=== PATIENT | female | born 1950 | race Caucasian/White ===

== ENCOUNTER → 2022-07-15 | Outpatient (CLI) | payer OTHER | END | disposition home or self-care (01) | LOC: RAH 14:00 | PROVIDERS: ATTEND Family Medicine | DX: Z12.31 Encounter for screening mammogram for malignant neoplasm of breast (principal) | CPT/HCPCS: 77067 ==

== ENCOUNTER → 2023-07-27 | Outpatient (CLI) | payer OTHER | END | disposition home or self-care (01) | LOC: RAH 10:33 | PROVIDERS: ATTEND Family Medicine | DX: Z12.31 Encounter for screening mammogram for malignant neoplasm of breast (principal) | CPT/HCPCS: 77067 ==

== ENCOUNTER 2024-06-21 14:38 | Observation (INO) | payer OTHER ==
[~2024-06-21] VITALS: Ht 165.1 cm; Wt 62.1 kg
--- NOTE | 2024-06-21 15:00 | ERN ---
General Chief Complaint: Other Problems Stated Complaint: EVAL Time Seen by MD: 14:41 Source: patient History of Present Illness Initial Comments Patient is a 74-year-old female coming in to be evaluated for slurred speech and dysphagia. Per patient she was evaluated by PCP earlier today and was sent in for further evaluation. Patient has been having these symptoms for two months but has been getting worse. Allergies: Coded Allergies: Cephalosporins (Unverified Allergy, Unknown, 06/21/24) Penicillins (Unverified Allergy, Unknown, 06/21/24) codeine (Unverified Allergy, Unknown, 06/21/24) hydrocodone (Unverified Allergy, Unknown, 06/21/24) Past Medical History Past Medical History: Hypertension Past Surgical History: BTL Surgical History Other: BILATERAL ROTATOR CUFFS, BREAST REDUCTION, BACK SX ROS Dictation CONSTITUTIONAL: No chills, no fever, weakness, no diaphoresis, no malaise. HEAD/FACE: No signs of trauma. EENT: No eye pain, no blurred vision, no tearing, no double vision, no ear pain, no ear discharge, no nose pain, no nasal congestion, no throat pain, no throat swelling, no mouth pain. RESPIRATORY: No cough, no orthopnea, no SOB, no stridor, no wheezing. CARDIOVASCULAR: No chest pain, no edema, no palpitations, no syncope. GASTROINTESTINAL/ABDOMINAL: No abdominal pain, no constipation, no diarrhea, no nausea, no vomiting. GENITOURINARY: No abnormal discharge, no dysuria, no frequent urination, no hematuria. No complaints of pain in the genitals. MUSCULOSKELETAL: No back pain, no gout, no joint pain, no joint swelling, no muscle pain, no muscle stiffness, no neck pain. INTEGUMENTARY: No change in color, no change in hair/nails, no dryness, no lesion, no lumps, no rash. NEUROLOGICAL/PSYCH: No anxiety, not depressed, no emotional problem, no headache, no numbness, no pre-existing deficit, no history of seizures, no tremors, no weakness. HEMATOLOGIC/LYMPHATIC: Not anemic, no history of blood clots, no apparent bleeding, no bruising, glands not swollen. All Systems Negative, Except as Noted. Physical Exam Physical Exam Dictation VITAL SIGNS: Reviewed. GENERAL APPEARANCE: Alert, oriented x3, no acute distress, obese. HEAD AND FACE: Non-traumatic. EYES: PERRL, pink conjunctivas, eyelid no trauma, anterior chamber clear. EARS: Pinnas intact and no signs of trauma or erythema. Ear canals clear and no discharge. TMs no erythema. NOSE: No discharge, no bleeding. OROPHARYNX: Mouth normal, teeth no caries, tongue pink. Pharynx clear, no erythema. Tonsils no exudates, no abscesses noted. Mucous membrane moist. NECK: Supple, non-tender, no thyromegaly, no masses, no JVD, no bruits. BREAST: Deferred. CHEST: No tenderness, no crepitus, no paradoxical movement, no retractions. LUNGS: Clear, well-ventilated, symmetric, no rales, no wheezing, no rhonchi, no stridor, good breath sounds bilaterally. HEART: Regular rate, regular rhythm, no murmur, no gallops. VASCULAR: No peripheral edema. ABDOMEN: Soft, positive bowel sounds, nondistended, no guarding, nontender, no rebound, no masses no hepatomegaly, no splenomegaly, no Strange's sign, no hernias. RECTAL: Deferred. GENITAL: Deferred. NEUROLOGICAL: Normal speech, gross motor function intact, gross sensory function intact. MUSCULOSKELETAL: Neck nontender, full range of motion, back nontender, full range of motion. EXTREMITIES: Nontender, full range of motion. SKIN: Color pink, dry, no turgor, no rash, no lacerations, no abrasions, no contusions. LYMPHATICS: Deferred. Results Laboratory and Microbiology Lab and Micro Result Laboratory Tests Test 06/21/24 15:10 06/21/24 16:17 White Blood Count 6.0 K/uL (4.8-10.8) Red Blood Count 4.18 MIL/uL (4.00-5.50) Hemoglobin 12.9 g/dL (12.0-16.0) Hematocrit 39.2 % (36-48) Mean Corpuscular Volume 93.8 fL (79-99) Mean Corpuscular Hemoglobin 30.9 pg (27.0-33.0) Mean Corpuscular Hemoglobin Concent 32.9 g/dL (32.0-36.0) Red Cell Distribution Width 11.9 % (11.0-15.5) Platelet Count 199 K/uL (130-400) Mean Platelet Volume 10.5 fL (7.5-10.5) Immature Granulocyte % (Auto) 0.2 % (0-1) Neutrophils (%) (Auto) 58.8 % (40.0-77.0) Lymphocytes (%) (Auto) 33.3 % (21.0-51.0) Monocytes (%) (Auto) 6.0 % (3.0-13.0) Eosinophils (%) (Auto) 1.2 % (0.0-8.0) Basophils (%) (Auto) 0.5 % (0.0-5.0) Neutrophils # (Auto) 3.5 K/uL (1.8-7.7) Lymphocytes # (Auto) 2.0 K/uL (1.0-4.8) Monocytes # (Auto) 0.4 K/uL (0.1-1.0) Eosinophils # (Auto) 0.07 K/uL (0.00-0.70) Basophils # (Auto) 0.03 K/uL (0.00-0.20) Absolute Immature Granulocyte (auto 0.01 K/uL (0-1) Nucleated Red Blood Cells 0.0 % (0.0-0.19) Prothrombin Time 10.8 SEC (9.6-11.6) Prothromb Time International Ratio 1.02 (0.85-1.15) Activated Partial Thromboplast Time 29.6 SEC (26.3-35.5) Sodium Level 143 mmol/L (136-145) Potassium Level 4.0 mmol/L (3.5-5.1) Chloride Level 103 mmol/L (101-111) Carbon Dioxide Level 34 mmol/L (21-32) H Blood Urea Nitrogen 23 mg/dL (7-18) H Creatinine 0.8 mg/dL (0.5-1.0) Glomerular Filtration Rate Calc 78 mL/min (>90) Random Glucose 100 mg/dL (70-105) Total Calcium 9.4 mg/dL (8.5-10.1) Total Creatine Kinase 99 U/L (21-232) Troponin I High Sensitivity 6.3 ng/L (4-50) B-Type Natriuretic Peptide 70 pg/mL (0-100) LDL Cholesterol 45 mg/dL (0-99) Urine Color YELLOW (YELLOW) Urine Appearance CLEAR (CLEAR) Urine pH 5.5 (5.0-8.0) Urine Specific [place] 1.025 (1.001-1.031) Urine Protein NEGATIVE mg/dL (NEGATIVE) Urine Glucose (UA) NEGATIVE mg/dL (NEGATIVE) Urine Ketones NEGATIVE mg/dL (NEGATIVE) Urine Occult Blood NEGATIVE (NEGATIVE) Urine Nitrate NEGATIVE (NEGATIVE) Urine Bilirubin NEGATIVE mg/dL (NEGATIVE) Urine Urobilinogen 0.2 mg/dL (0.2-1.0) Urine Leukocyte Esterase 500 Corey/uL (NEGATIVE) H Urine RBC 2-5 /HPF (0-1) H Urine WBC 26-50 /HPF (0-1) H Urine Squamous Epithelial Cells RARE /HPF (0-2) Urine Bacteria RARE /HPF (None Seen) EKG/XRAY/US/CT/MRI EKG Comment 06/21/2024 time 3:04 p.m. Ventricular rate 69 Sinus rhythm [place] [address] wave elevation or depression X-RAY Comment [address] [place] [id number] IMAGING REPORT Signed PATIENT: AMBERLY AYALA MR#: [id number] : 1950 SEX: F AGE: 74 LOCATION: [facility] ORDER 1450 STATUS: [facility] REPORT#: [id number] SERVICE 1448 REASON: stroke ORDERING PHYSICIAN: ELVIN ALEJANDRE MD PROCEDURE: CXR1VW - CHEST 1VW PORTABLE CHEST RADIOGRAPH INDICATION: stroke COMPARISON: None FINDINGS: Heart size is normal. The pulmonary vascularity and renaldo appear normal. No abnormal pulmonary parenchymal opacity or consolidation identified. No significant pleural effusion noted. No pneumothorax detected. IMPRESSION: No radiographic evidence for any acute cardiopulmonary process. DICTATED BY: RONNY ANN MD DATE: 06/21/24 1524 ELECTRONICALLY SIGNED BY: RONNY ANN MD DATE: 06/21/[address] Scan Comment [facility] [address] [place] [address] IMAGING REPORT Signed PATIENT: AMBERLY AYALA MR#: [id number] : 1950 SEX: F AGE: 74 LOCATION: [facility] ORDER 1624 STATUS: REG ER REPORT#: [id number] SERVICE 162 REASON: dysphagia ORDERING PHYSICIAN: ELVIN ALEJANDRE MD PROCEDURE: NKSOFTI W - CT NECK SOFT TISS W/CONTRAST CT NECK WITH CONTRAST INDICATION: Dysphagia TECHNIQUE: 3D helical CT acquisition images were obtained from the level of the skull base to the thoracic inlet with 75 mL of Omnipaque 350 IV contrast and coronal and sagittal reformats. CT was performed with one or more of the following dose reduction techniques: Automated exposure control, adjustment of the mA and/or kV according to patient size, or use of iterative reconstruction technique. COMPARISON: None FINDINGS: The visualized portions of the brain, skull base, orbits, and paranasal sinuses appear normal. The visualized nasopharynx and nasal cavity appear normal. The oral cavity, oropharynx, and hypopharynx appear normal. The cervical esophagus and visualized portion of the thoracic esophagus appear normal. The larynx and visualized trachea appear normal. The extramucosal spaces of the neck appear normal. The parotid and submandibular glands appear normal. The thyroid gland appears normal. No cervical lymphadenopathy noted. The visualized osseous structures, vasculature, and soft tissues appear normal. The upper mediastinum and lung apices appear normal. IMPRESSION: Normal CT imaging of the neck. DICTATED BY: RONNY ANN MD DATE: 06/21/24 1753 ELECTRONICALLY SIGNED BY: RONNY ANN MD DATE: 06/21/24 [address] [place] [id number] IMAGING REPORT Signed PATIENT: AMBERLY AYALA MR#: [id number] : 1950 SEX: F AGE: 74 LOCATION: ED ORDER 1450 STATUS: REG ER REPORT#: [id number] SERVICE 1448 REASON: slurred speech ORDERING PHYSICIAN: ELVIN ALEJANDRE MD PROCEDURE: HEAD WO - CT HEAD/BRAIN W/O CONTRAST CT HEAD WITHOUT CONTRAST INDICATION: Slurred speech TECHNIQUE: Noncontrast axial helical CT images from the vertex through the skull base using 5 mm slice thickness without contrast material. Coronal and sagittal reconstructions were also included. Dose reduction techniques was used using integrated, automated and adaptive dose reduction exposure control. CT was performed with one or more of the following dose reduction techniques: Automated exposure control, adjustment of the mA and/or kV according to patient size, or use of iterative reconstruction technique. COMPARISON: None FINDINGS: Scattered and coalescent subcortical and periventricular white matter low attenuating areas likely represent residual of chronic small vessel arteriopathy and/or remote vascular insult. Generalized mild cerebral cortical atrophy is present.. No evidence for abnormal extra-axial fluid collections or masses. The ventricles and sulci are normal in size and configuration. No evidence for intracranial parenchymal, epidural, or subdural hemorrhage, mass effect or midline shift. The real-white matter differentiation is well preserved. No secondary evidence to suggest acute ischemia. Mild calcific plaque is present along the downs of the cavernous segments of both internal carotid arteries. The brainstem and cerebellum appear normal. The visualized orbits appear unremarkable. The visible paranasal sinuses and mastoid air cells are clear. The calvarium appears normal. IMPRESSION: Chronic white matter ischemic changes, mild brain atrophy, and arteriosclerotic disease as described, without acute component. DICTATED BY: RONNY ANN MD DATE: 06/21/24 153 ELECTRONICALLY SIGNED BY: RONNY ANN MD DATE: 06/21/24 153 [facility] MDM: Differential diagnosis: CVA, TIA, dysphagia, Rationale: Tests considered and ordered secondary to shared decision making include: labs, ECG and radiology Previous outside records reviewed: Old ER visits. Risk of complication and/or morbidity or mortality of patient management: None Medications-Per medication reconciliation Need for hospitalization: Patient does meet criteria for hospitalization. Need for emergency major/minor surgery: No There are no social concerns with this patient. Prescription drug management Prescriptions will include symptomatic care Patient's prior external medical records from other ER visits were reviewed by me as indicated. Prior testing and results from previous visits were reviewed. Prior tests were taken into account with medical decision making and resource utilization, independent historian/historians were used to obtain complete medical history. I independently interpreted the test that were performed, results were reviewed by me and considered findings on radiology if ordered. Medical management and examination interpretation discussions were had by me with other qualified healthcare professionals as indicated for the patient's care. Patient is a 74-year-old female coming in to be evaluated for dysarthria and dysphagia. Per patient's symptoms has been ongoing for two months. Spoke to neurologist Dr.Cerdan villafuerte to admit. And workup for stroke. Hospitalist we will be admitting. ED Course Orders Procedure Category Date Status Time Cbc With Differential LAB 06/21/24 Complete 14:48 Prothrombin Time With LAB 06/21/24 Complete INR 14:48 Partial LAB 06/21/24 Complete Thromboplastin Time 14:48 Ct Head/Brain W/O CT 06/21/24 Resulted Contrast 14:48 Chest 1vw RAD 06/21/24 Resulted 14:48 12 Lead Ekg Tracing- EKG 06/21/24 Logged Technical 14:48 Ldl Direct LAB 06/21/24 Complete 14:48 Urinalysis Profile LAB 06/21/24 Complete 14:48 B-Type Natriuretic LAB 06/21/24 Complete Peptide 14:48 Bedside Glucose CPOE 06/21/24 Transmitted Fingerstick 14:48 Basic Metabolic Panel LAB 06/21/24 Complete 14:48 Cardiac Panel LAB 06/21/24 Complete 14:[address] Neck Soft Tiss CT 06/21/24 Resulted W/Contrast 16:24 Culture Urine SATYA 06/21/24 In Process 16:31 Iohexol (Omnipaque) PHA 06/21/24 Complete 16:52 Current Medications Medications (Trade) Dose Ordered Sig/Joseph Route PRN Reason Start Time Stop Time Status Last Admin Dose Admin Iohexol (Omnipaque) 75 ml STK-MED ONCE IV 06/21/24 16:52 06/21/24 16:52 DC Vital Signs Date Time Temp Pulse Resp B/P (MAP) Pulse Ox O2 Delivery O2 Flow Rate FiO2 06/21/24 15:33 98.2 62 18 112/66 97 Room Air* 0 21 06/21/24 14:39 98.4 81 18 121/83 98 Room Air DX & DISP Disposition: Inpatient Decision to Admit Time: 18:11 Departure Impression: Primary Impression: CVA (cerebral vascular accident) Additional Impressions: TIA (transient ischemic attack), Dysphagia Condition: Stable Referrals: DEDRA RIVAS (PCP) ELVIN ALEJANDRE MD Jun 21, 2024 15:00
[2024-06-21 15:24] LABS: BASOPHILS # (AUTO) 0.03 K/uL (0.00-0.20); BASOPHILS % (AUTO) 0.5 % (0.0-5.0); EOSINOPHILS # (AUTO) 0.07 K/uL (0.00-0.70); EOSINOPHILS % (AUTO) 1.2 % (0.0-8.0); HEMATOCRIT 39.2 % (36-48); IMMATURE GRANULOCYTE ABSOLUTE 0.01 K/uL (0-1); LYMPHOCYTES % (AUTO) 33.3 % (21.0-51.0); MEAN CORPUSCULAR HEMOGLOBIN 30.9 pg (27.0-33.0); MEAN CORPUSCULAR HGB CONC 32.9 g/dL (32.0-36.0); MEAN CORPUSCULAR VOLUME 93.8 fL (79-99); MONOCYTES # (AUTO) 0.4 K/uL (0.1-1.0); NEUTROPHILS # (AUTO) 3.5 K/uL (1.8-7.7); NEUTROPHILS % (AUTO) 58.8 % (40.0-77.0); PLATELET COUNT (AUTO) 199 K/uL (130-400); RED BLOOD CELL COUNT(AUTO) 4.18 MIL/uL (4.00-5.50); RED CELL DISTRIBUTION WIDTH 11.9 % (11.0-15.5)
--- NOTE | 2024-06-21 15:27 | HMCIMG ---
PORTABLE CHEST RADIOGRAPH INDICATION: stroke COMPARISON: None FINDINGS: Heart size is normal. The pulmonary vascularity and renaldo appear normal. No abnormal pulmonary parenchymal opacity or consolidation identified. No significant pleural effusion noted. No pneumothorax detected. IMPRESSION: No radiographic evidence for any acute cardiopulmonary process.
--- NOTE | 2024-06-21 15:38 | HMCIMG ---
CT HEAD WITHOUT CONTRAST INDICATION: Slurred speech TECHNIQUE: Noncontrast axial helical CT images from the vertex through the skull base using 5 mm slice thickness without contrast material. Coronal and sagittal reconstructions were also included. Dose reduction techniques was used using integrated, automated and adaptive dose reduction exposure control. CT was performed with one or more of the following dose reduction techniques: Automated exposure control, adjustment of the mA and/or kV according to patient size, or use of iterative reconstruction technique. COMPARISON: None FINDINGS: Scattered and coalescent subcortical and periventricular white matter low attenuating areas likely represent residual of chronic small vessel arteriopathy and/or remote vascular insult. Generalized mild cerebral cortical atrophy is present.. No evidence for abnormal extra-axial fluid collections or masses. The ventricles and sulci are normal in size and configuration. No evidence for intracranial parenchymal, epidural, or subdural hemorrhage, mass effect or midline shift. The real-white matter differentiation is well preserved. No secondary evidence to suggest acute ischemia. Mild calcific plaque is present along the downs of the cavernous segments of both internal carotid arteries. The brainstem and cerebellum appear normal. The visualized orbits appear unremarkable. The visible paranasal sinuses and mastoid air cells are clear. The calvarium appears normal. IMPRESSION: Chronic white matter ischemic changes, mild brain atrophy, and arteriosclerotic disease as described, without acute component.
[2024-06-21 15:52] LABS: CREATININE 0.8 mg/dL (0.5-1.0)
[2024-06-21 15:55] LABS: B-TYPE NATRIURETIC PEPTIDE 70 pg/mL (0-100)
[2024-06-21 16:00] LABS: INR 1.02 (0.85-1.15); PROTHROMBIN TIME 10.8 SEC (9.6-11.6)
[2024-06-21 16:02] LABS: PARTIAL THROMBOPLASTIN TIME 29.6 SEC (26.3-35.5)
[2024-06-21 16:29] LABS: APPEARANCE,URINE CLEAR (CLEAR); BILIRUBIN,URINE NEGATIVE (NEGATIVE); COLOR,URINE YELLOW (YELLOW); GLUCOSE, URINE (UA) NEGATIVE (NEGATIVE); KETONES,URINE NEGATIVE (NEGATIVE); LEUKOCYTE ESTERASE ,URINE 500 Leu/uL (NEGATIVE); NITRATE,URINE NEGATIVE (NEGATIVE); OCCULT BLOOD,URINE NEGATIVE (NEGATIVE); PH,URINE 5.5 (5.0-8.0); PROTEIN,URINE NEGATIVE (NEGATIVE); UROBILINOGEN,URINE 0.2 mg/dL (0.2-1.0)
[2024-06-21 16:30] LABS: ADD UA MICROSCOPIC YES
[2024-06-21 16:32] LABS: BACTERIA,URINE RARE /HPF (None Seen); MUCUS,URINE RARE LPF (None Seen); SQUAMOUS EPITHELIAL CELL,UR RARE /HPF (0-2); WBC,URINE 26-50 /HPF (0-1)
[2024-06-21] MEDS ORDERED: IOHEXOL-350 75 ML VIAL IV ONE (16:52)
--- NOTE | 2024-06-21 18:00 | HMCIMG ---
CT NECK WITH CONTRAST INDICATION: Dysphagia TECHNIQUE: 3D helical CT acquisition images were obtained from the level of the skull base to the thoracic inlet with 75 mL of Omnipaque 350 IV contrast and coronal and sagittal reformats. CT was performed with one or more of the following dose reduction techniques: Automated exposure control, adjustment of the mA and/or kV according to patient size, or use of iterative reconstruction technique. COMPARISON: None FINDINGS: The visualized portions of the brain, skull base, orbits, and paranasal sinuses appear normal. The visualized nasopharynx and nasal cavity appear normal. The oral cavity, oropharynx, and hypopharynx appear normal. The cervical esophagus and visualized portion of the thoracic esophagus appear normal. The larynx and visualized trachea appear normal. The extramucosal spaces of the neck appear normal. The parotid and submandibular glands appear normal. The thyroid gland appears normal. No cervical lymphadenopathy noted. The visualized osseous structures, vasculature, and soft tissues appear normal. The upper mediastinum and lung apices appear normal. IMPRESSION: Normal CT imaging of the neck.
--- NOTE | 2024-06-21 19:31 | NUR ---
PT CARE ASSUMED AT THIS TIME
--- NOTE | 2024-06-21 20:29 | HP ---
[facility] HISTORY AND PHYSICAL Date of Service: Jun 21, 2024 Time of Service: 20:11 PCP: Amos Pitt HISTORY OF PRESENT ILLNESS: This is a 74-year-old male past medical history of hypertension and hyperlipidemia who presents to the ED for complaints of slurred speech,dysphagia and voice hoarseness which started 2 months ago. Patient states she went to her PCP today for a scheduled labs and imaging studies since she has 2 cysts on her thyroid which has been on going for years now and she told her PCP about her complaints that she has been having difficulty swallowing ,voice hoarseness and feels like her tongue is thick and has also problem talking and all this happened since 2 months ago and it seems like it is becoming more worse so she was instructed to come to the ED for a further evaluation. Seen and examined patient in the Er,awake,alert and coherent .Patient moving all her extremities equally.Patient denies headache,dizziness,numbness or tingling sensation on her extremities.Patient denies abdominal pain, chest pain,palpitation and shortness of breath. Recent vital signs temperature 98.1, heart rate 90, blood pressure 118/78 saturation 97% on room air. Labs: CBC is normal. CO2 34 BUN 23 BNP 70 troponin six the rest of the chemistry is normal. Urinalysis positive with esterase. CT neck soft tissue result revealed normal. CT head without contrast result revealed chronic white matter ischemic changes mild brain atrophy and arteriosclerotic disease as described without acute component. ECG result revealed sinus rhythm heart rate 69. Chest x-ray is normal. Reportedly as per ER, neurologist was consulted. We will ad fallon patient for further medical management. REVIEW OF SYSTEMS CONSTITUTIONAL: Denies fevers, chills, or night sweats. No unintentional weight loss reported. NEUROLOGICAL: Denies headache, amaurosis fugax, motor weakness, sensory deficit, vertigo/spinning sensation, gait abnormalities, or tremors. ENT: No hearing loss, otalgia, otorrhea, rhinitis, rhinorrhea, hoarseness, or sore throat. CARDIOVASCULAR: Denies any exertional angina, dyspnea on exertion, orthopnea, paroxysmal nocturnal dyspnea, palpitations, life-threatening arrhythmias, claudication. PULMONARY: Denies any shortness of breath, cough, phlegm/sputum, hemoptysis, pleuritic chest pain. SLEEP: Denies morning headaches, daytime somnolence or napping. Denies difficulty falling asleep, staying asleep, waking from sleep. Denies knowledge of snoring. GASTROINTESTINAL: Denies any type of dysphagia to either liquids or solids. Denies nausea, vomiting, pyrosis, early satiety, abdominal pain, diarrhea, constipation, or changes in stool consistency or caliber. Denies coffee-ground emesis, hematemesis, hematochezia, or melanotic stools. GENITOURINARY: Denies frequency, urgency, nocturia, hematuria or incontinence (Storage/Irritative symptoms.) Low urinary stream, straining to void, urinary intermittency or hesitancy, splitting of the voiding stream, terminal dribbling. ENDOCRINOLOGIC: Denies polyuria, polydipsia, polyphagia or heat/cold intolerances. HEMATOLOGIC: Denies thrombophilia/previous clots, or coagulopathy/bleeding disorders. ONCOLOGIC: Denies personal history of malignancy. DERMATOLOGIC: Denies rashes or pruritus. PSYCHIATRIC: Denies any suicidal or homicidal ideation. Denies hallucinations. PAST MEDICAL HISTORY: [ Hypertension and hyperlipidemia ] PAST SURGICAL HISTORY: [Bilateral Cataract surgery , bilateral shoulder surgery, lower back surgery and tubal ligation ] PAST SOCIAL HISTORY: [ Patient lives with . Patient denies alcohol tobacco and recreational drug use ] FAMILY HISTORY: [Stroke ] Coded Allergies: Cephalosporins (Unverified Allergy, Unknown, 06/21/24) Penicillins (Unverified Allergy, Unknown, 06/21/24) codeine (Unverified Allergy, Unknown, 06/21/24) hydrocodone (Unverified Allergy, Unknown, 06/21/24) PHYSICAL EXAM GENERAL APPEARANCE: The patient is awake, alert, and oriented, in no acute cardiopulmonary distress. NEUROLOGICAL: Motor is 5/5 in bilateral upper and lower extremities proximal to distal. HEENT: Face is symmetric. Pupils are equal and reactive. Extraocular movements are intact. NECK: Supple. No JVD. No thyromegaly. No submental, submandibular, pre- /postauricular, occipital or supraclavicular lymphadenopathy. CHEST: Normal chest expansion. No Telemetry. LUNGS: Absence of any rales, rhonchi or any wheezing. CARDIOVASCULAR: Regular. S1 and S2 normal. No appreciable rubs, murmurs or gallops. ABDOMEN: Soft, nontender, and nondistended. There is no rebound, voluntary guarding, or rigidity. : Deferred. No Arias. EXTREMITIES: Non-edematous and not cyanotic. No clubbing. Good capillary refill. SKIN: No skin breakdown. Vital Sign (Last 24 Hours) 06/21/24 19:43 Temp 98.1 Pulse 90 Resp 17 B/P (MAP) 118/78 Pulse Ox 97 O2 Delivery Room Air* O2 Flow Rate 0 FiO2 21 LABS: Laboratory: Test 06/21/24 16:17 06/21/24 15:10 Range/Units Urine Color YELLOW YELLOW Urine Appearance CLEAR CLEAR Urine pH 5.5 5.0-8.0 Urine Specific [place] 1.025 1.001-1.031 Urine Protein NEGATIVE NEGATIVE mg/dL Urine Glucose (UA) NEGATIVE NEGATIVE mg/dL Urine Ketones NEGATIVE NEGATIVE mg/dL Urine Occult Blood NEGATIVE NEGATIVE Urine Nitrate NEGATIVE NEGATIVE Urine Bilirubin NEGATIVE NEGATIVE mg/dL Urine Urobilinogen 0.2 0.2-1.0 mg/dL Urine Leukocyte Esterase 500 H NEGATIVE Corey/uL Urine RBC 2-5 H 0-1 /HPF Urine WBC 26-50 H 0-1 /HPF Urine Squamous Epithelial Cells RARE 0-2 /HPF Urine Bacteria RARE None Seen /HPF White Blood Count 6.0 4.8-10.8 K/uL Red Blood Count 4.18 4.00-5.50 MIL/uL Hemoglobin 12.9 12.0-16.0 g/dL Hematocrit 39.2 36-48 % Mean Corpuscular Volume 93.8 79-99 fL Mean Corpuscular Hemoglobin 30.9 27.0-33.0 pg Mean Corpuscular Hemoglobin Concent 32.9 32.0-36.0 g/dL Red Cell Distribution Width 11.9 11.0-15.5 % Platelet Count 199 130-400 K/uL Mean Platelet Volume 10.5 7.5-10.5 fL Immature Granulocyte % (Auto) 0.2 0-1 % Neutrophils (%) (Auto) 58.8 40.0-77.0 % Lymphocytes (%) (Auto) 33.3 21.0-51.0 % Monocytes (%) (Auto) 6.0 3.0-13.0 % Eosinophils (%) (Auto) 1.2 0.0-8.0 % Basophils (%) (Auto) 0.5 0.0-5.0 % Neutrophils # (Auto) 3.5 1.8-7.7 K/uL Lymphocytes # (Auto) 2.0 1.0-4.8 K/uL Monocytes # (Auto) 0.4 0.1-1.0 K/uL Eosinophils # (Auto) 0.07 0.00-0.70 K/uL Basophils # (Auto) 0.03 0.00-0.20 K/uL Absolute Immature Granulocyte (auto 0.01 0-1 K/uL Nucleated Red Blood Cells 0.0 0.0-0.19 % Prothrombin Time 10.8 9.6-11.6 SEC Prothromb Time International Ratio 1.02 0.85-1.15 Activated Partial Thromboplast Time 29.6 26.3-35.5 SEC Sodium Level 143 136-145 mmol/L Potassium Level 4.0 3.5-5.1 mmol/L Chloride Level 103 101-111 mmol/L Carbon Dioxide Level 34 H 21-32 mmol/L Blood Urea Nitrogen 23 H 7-18 mg/dL Creatinine 0.8 0.5-1.0 mg/dL Glomerular Filtration Rate Calc 78 >90 mL/min Random Glucose 100 70-105 mg/dL Total Calcium 9.4 8.5-10.1 mg/dL Total Creatine Kinase 99 21-232 U/L Troponin I High Sensitivity 6.3 4-50 ng/L B-Type Natriuretic Peptide 70 0-100 pg/mL LDL Cholesterol 45 0-99 mg/dL DIAGNOSTICS / RADIOLOGY: [ ] ASSESSMENT: Dysphagia and dysarthria r/o CVA POA Hyperlipidemia POA Hypertension POA Acute urinary tract infection POA PLAN: We will admit patient in medical telemetry We will start on full liquid diet We will start NS @ 75 ml / hr x1 bag and re evaluate We will start patient on Rocephin 1 g IV daily We will start on Famotidine 20 mg IV bid for GI prophylaxis We will replace electrolytes as needed per protocol We will add prn medication for fever,pain,cough and nausea We will reconcile home meds once medlist available We will seek neurology consultation We will check nuero status q.4 NIHSS qhift and as needed We will request Case management service We will request bedside swallow eval We will request labs in am Further orders to follow depending on above results Case discussed with attending physician and came up with above treatment and plan of care. ADVANCED CARE PLANNING 1. Which of the following were discussed? Hospice Care - No Therapeutic options - Yes Advance Directives - No Other discussions - 2. Discussed with who? Patient 3. Voluntary nature of this service was explained to the patient? Yes 4. Amount of time spent - _22 5. Reviewed by Physician? (if this service was performed by NPP) Yes Patient seen and examined by me. Agree with note by BRUSH SANDER SEE ADDITIONAL ORDERS PER CHART DISCUSSED WITH NURSING STAFF HEATHER RAHMAN MAILING MACHINE ASSISTANT Jun 21, 2024 20:29
[2024-06-21] MEDS ORDERED: PoTASSium chloRIDE 20MEQ/100ML 100 ML IV PRN (20:30)
[2024-06-21] MEDS ORDERED: cefTRIAXone 1G VIAL 1 GM in 0.9%NACL 50ML 50 ML IV SCH (20:30)
[2024-06-21] MEDS ORDERED: PoTASSium chloRIDE 20MEQ ER 20 MEQ ERTAB PO PRN (20:30)
[2024-06-21] MEDS ORDERED: PoTASSium chl 10% ELIXIR 20MEQ 20 MEQ/15 ML UDCUP PO PRN (20:30)
[2024-06-21] MEDS ORDERED: ondanSETRON 4MG INJ IV PRN (20:30)
[2024-06-21] MEDS ORDERED: MAGNESIUM 2GM PREMIX 50ML 50 ML IV PRN (20:30)
[2024-06-21] MEDS: 0.9%NACL 1000ML 1,000 ML IV SCH (21:20)
[2024-06-21] MEDS: FAMOTIDINE 20MG VIAL IV SCH (21:20)
--- NOTE | 2024-06-21 21:27 | NUR ---
REPOR GIVEN TO PHYLLIS SCHULZ AT THIS TIME.
[2024-06-21] MEDS: levoFLOXacin 500 MG/D5W 100 ML 100 ML IV SCH (23:23)
[2024-06-22] MEDS ORDERED: CALC-322 PO (00:43)
[2024-06-22] MEDS ORDERED: MELA10CA2 PO (00:43)
[2024-06-22] MEDS ORDERED: GABA300C PO (00:43)
[2024-06-22] MEDS ORDERED: CYCL2DRO OP (00:43)
[2024-06-22] MEDS ORDERED: CETI10TA87 PO (00:43)
[2024-06-22] MEDS ORDERED: CRAN450T10 PO (00:43)
[2024-06-22] MEDS ORDERED: PRED5DRO17 OU (00:43)
[2024-06-22] MEDS ORDERED: UBID300C3 PO (00:43)
[2024-06-22] MEDS ORDERED: ROSU20TA98 PO (00:43)
[2024-06-22] MEDS ORDERED: MAGN400C PO (00:43)
[2024-06-22] MEDS ORDERED: FENO160T16 PO (00:43)
[2024-06-22] MEDS ORDERED: LOSA100T59 PO (00:43)
--- NOTE | 2024-06-22 07:05 | NUR ---
ASSUMED CARE AT THIS TIME
[2024-06-22 07:30] LABS: BASOPHILS # (AUTO) 0.02 K/uL (0.00-0.20); BASOPHILS % (AUTO) 0.4 % (0.0-5.0); EOSINOPHILS # (AUTO) 0.08 K/uL (0.00-0.70); EOSINOPHILS % (AUTO) 1.4 % (0.0-8.0); IMMATURE GRANULOCYTE ABSOLUTE 0.02 K/uL (0-1); LYMPHOCYTES # (AUTO) 1.4 K/uL (1.0-4.8); LYMPHOCYTES % (AUTO) 25.3 % (21.0-51.0); MEAN CORPUSCULAR HEMOGLOBIN 30.5 pg (27.0-33.0); MEAN CORPUSCULAR HGB CONC 32.4 g/dL (32.0-36.0); MEAN CORPUSCULAR VOLUME 93.9 fL (79-99); MONOCYTES # (AUTO) 0.3 K/uL (0.1-1.0); MONOCYTES % (AUTO) 5.7 % (3.0-13.0); NEUTROPHILS # (AUTO) 3.7 K/uL (1.8-7.7); NEUTROPHILS % (AUTO) 66.8 % (40.0-77.0); PLATELET COUNT (AUTO) 179 K/uL (130-400); RED BLOOD CELL COUNT(AUTO) 3.94 MIL/uL (4.00-5.50); RED CELL DISTRIBUTION WIDTH 11.9 % (11.0-15.5); WHITE BLOOD COUNT (AUTO) 5.6 K/uL (4.8-10.8)
--- NOTE | 2024-06-22 07:37 | EKG ---
[facility] Test Date: 2024-06-21 Test Time: 15:04:18 Pat Name: AMBERLY AYALA Department: [facility]HIP Room: 328 Gender: F Records Supervisor: [id number] : 1950 Requested By: ELVIN ALEJANDRE Order Number: [id number] Reading MD: Ra Mabry Measurements Intervals Bowers Rate: 69 P: 34 IN: 194 QRS: -20 QRSD: 94 T: 17 QT: 406 QTc: 435 Interpretive Statements Sinus rhythm No previous ECG available for comparison Electronically Signed On 06-23-2024 14:48:14 CDT by Ra Mabry Please click the below link to view image of tracing.
[2024-06-22 07:57] LABS: ALBUMIN 3.3 g/dL (3.5-5.0); BILIRUBIN,TOTAL 0.8 mg/dL (0.2-1.0); CREATININE 0.8 mg/dL (0.5-1.0); MAGNESIUM 1.6 mg/dL (1.80-2.40); POTASSIUM 3.8 mmol/L (3.5-5.1); THYROID STIMULATING HORMONE 2.27 uIU/mL (0.36-3.74); TOTAL PROTEIN, SERUM 6.7 g/dL (6.0-8.3)
[2024-06-22 08:30] LABS: HEMOGLOBIN A1C 5.9 % (4.0-6.0)
[2024-06-22] MEDS: Fenofibrate 1 TAB PO SCH (09:00)
[2024-06-22] MEDS ORDERED: MAGNESIUM 2GM PREMIX 50ML 50 ML IV PRN (09:30)
[2024-06-22] MEDS: LoSARTan 100 MG TABLET PO SCH (09:57)
[2024-06-22] MEDS: MAGNESIUM OXIDE 400 MG TABLET PO SCH (09:57)
[2024-06-22] MEDS: PREDNISOLONE 1% OU SCH (10:09)
--- NOTE | 2024-06-22 10:48 | NUR ---
DCP: HOME Pt and her Cosmo Jain [phone] live at [facility]. Mobile home has ramp. 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 Pt states she and have great support [place] [facility] [place] Pt uses no DME or in home care services, she reports she remains active and independent. Pt's PCP is Dr Trinidad and she buys her meds at [facility] [address] Pt denies need for SNF, states she needs to get home at ok
--- NOTE | 2024-06-22 11:27 | PN ---
[facility] PROGRESS NOTE Date of Service: Jun 22, 2024 Time of Service: 11:19 SUBJECTIVE: This is a 74-year-old male past medical history of hypertension and hyperlipidemia who presents to the ED for complaints of slurred speech,dysphagia and voice hoarseness which started 2 months ago. Patient states she went to her PCP today for a scheduled labs and imaging studies since she has 2 cysts on her thyroid which has been on going for years now and she told her PCP about her complaints that she has been having difficulty swallowing ,voice hoarseness and feels like her tongue is thick and has also problem talking and all this happened since 2 months ago and it seems like it is becoming more worse so she was instructed to come to the ED for a further evaluation. Seen and examined patient in the Er,awake,alert and coherent .Patient moving all her extremities equally.Patient denies headache,dizziness,numbness or tingling sensation on her extremities.Patient denies abdominal pain, chest pain,palpitation and shortness of breath. Recent vital signs temperature 98.1, heart rate 90, blood pressure 118/78 saturation 97% on room air. Labs: CBC is normal. CO2 34 BUN 23 BNP 70 troponin six the rest of the chemistry is normal. Urinalysis positive with esterase. CT neck soft tissue result revealed normal. CT head without contrast result revealed chronic white matter ischemic changes mild brain atrophy and arteriosclerotic disease as described without acute component. ECG result revealed sinus rhythm heart rate 69. Chest x-ray is normal. Reportedly as per ER, neurologist was consulted. We will admit patient for further medical management. 06/22/2024 - patient is seen at bedside, pending bedside swallow and modified barium swallow study. Patient is currently has mild dysphagia and informed about choking on water, asymptomatic otherwise. Labs were unremarkable . We will follow up with the patient. REVIEW OF SYSTEMS CONSTITUTIONAL: Denies fevers, chills, or night sweats. No unintentional weight loss reported. NEUROLOGICAL: Denies headache, amaurosis fugax, motor weakness, sensory deficit, vertigo/spinning sensation, gait abnormalities, or tremors. ENT: No hearing loss, otalgia, otorrhea, rhinitis, rhinorrhea, hoarseness, or sore throat. CARDIOVASCULAR: Denies any exertional angina, dyspnea on exertion, orthopnea, paroxysmal nocturnal dyspnea, palpitations, life-threatening arrhythmias, claudication. PULMONARY: Denies any shortness of breath, cough, phlegm/sputum, hemoptysis, pleuritic chest pain. SLEEP: Denies morning headaches, daytime somnolence or napping. Denies difficulty falling asleep, staying asleep, waking from sleep. Denies knowledge of snoring. GASTROINTESTINAL: Denies any type of dysphagia to either liquids or solids. Denies nausea, vomiting, pyrosis, early satiety, abdominal pain, diarrhea, constipation, or changes in stool consistency or caliber. Denies coffee-ground emesis, hematemesis, hematochezia, or melanotic stools. GENITOURINARY: Denies frequency, urgency, nocturia, hematuria or incontinence (Storage/Irritative symptoms.) Low urinary stream, straining to void, urinary intermittency or hesitancy, splitting of the voiding stream, terminal dribbling. ENDOCRINOLOGIC: Denies polyuria, polydipsia, polyphagia or heat/cold intolerances. HEMATOLOGIC: Denies thrombophilia/previous clots, or coagulopathy/bleeding disorders. ONCOLOGIC: Denies personal history of malignancy. DERMATOLOGIC: Denies rashes or pruritus. PSYCHIATRIC: Denies any suicidal or homicidal ideation. Denies hallucinations. PHYSICAL EXAM GENERAL APPEARANCE: The patient is awake, alert, and oriented, in no acute cardiopulmonary distress. NEUROLOGICAL: Motor is 5/5 in bilateral upper and lower extremities proximal to distal. HEENT: Face is symmetric. Pupils are equal and reactive. Extraocular movements are intact. NECK: Supple. No JVD. No thyromegaly. No submental, submandibular, pre-/postauricular, occipital or supraclavicular lymphadenopathy. CHEST: Normal chest expansion. No Telemetry. LUNGS: Absence of any rales, rhonchi or any wheezing. CARDIOVASCULAR: Regular. S1 and S2 normal. No appreciable rubs, murmurs or gallops. ABDOMEN: Soft, nontender, and nondistended. There is no rebound, voluntary guarding, or rigidity. : Deferred. No Arias. EXTREMITIES: Non-edematous and not cyanotic. No clubbing. Good capillary refill. SKIN: No skin breakdown. Vital Signs (last 8hr) Date Time Temp Pulse Resp B/P (MAP) Pulse Ox O2 Delivery O2 Flow Rate FiO2 06/22/24 08:07 97.9 79 14 129/75 98 Room Air* 0 21 06/22/24 04:51 97.9 59 20 135/56 95 Room Air* 0 21 LABS: Laboratory: Test 06/22/24 07:14 06/21/24 16:17 06/21/24 15:10 Range/Units White Blood Count 5.6 4.8-10.8 K/uL Red Blood Count 3.94 L 4.00-5.50 MIL/uL Hemoglobin 12.0 12.0-16.0 g/dL Hematocrit 37.0 36-48 % Mean Corpuscular Volume 93.9 79-99 fL Mean Corpuscular Hemoglobin 30.5 27.0-33.0 pg Mean Corpuscular Hemoglobin Concent 32.4 32.0-36.0 g/dL Red Cell Distribution Width 11.9 11.0-15.5 % Platelet Count 179 130-400 K/uL Mean Platelet Volume 10.2 7.5-10.5 fL Immature Granulocyte % (Auto) 0.4 0-1 % Neutrophils (%) (Auto) 66.8 40.0-77.0 % Lymphocytes (%) (Auto) 25.3 21.0-51.0 % Monocytes (%) (Auto) 5.7 3.0-13.0 % Eosinophils (%) (Auto) 1.4 0.0-8.0 % Basophils (%) (Auto) 0.4 0.0-5.0 % Neutrophils # (Auto) 3.7 1.8-7.7 K/uL Lymphocytes # (Auto) 1.4 1.0-4.8 K/uL Monocytes # (Auto) 0.3 0.1-1.0 K/uL Eosinophils # (Auto) 0.08 0.00-0.70 K/uL Basophils # (Auto) 0.02 0.00-0.20 K/uL Absolute Immature Granulocyte (auto 0.02 0-1 K/uL Nucleated Red Blood Cells 0.0 0.0-0.19 % Sodium Level 143 136-145 mmol/L Potassium Level 3.8 3.5-5.1 mmol/L Chloride Level 105 101-111 mmol/L Carbon Dioxide Level 30 21-32 mmol/L Blood Urea Nitrogen 18 7-18 mg/dL Creatinine 0.8 0.5-1.0 mg/dL Glomerular Filtration Rate Calc 78 >90 mL/min Random Glucose 84 70-105 mg/dL Hemoglobin A1c 5.9 4.0-6.0 % Estimated Average Glucose (eAG) 123 70-126 mg/dL Total Calcium 8.9 8.5-10.1 mg/dL Magnesium Level 1.60 L 1.80-2.40 mg/dL Total Bilirubin 0.8 0.2-1.0 mg/dL Aspartate Amino Transf (AST/SGOT) 17 10-37 U/L Alanine Aminotransferase (ALT/SGPT) 19 12-78 U/L Alkaline Phosphatase 45 L 50-136 U/L Total Protein 6.7 6.0-8.3 g/dL Albumin 3.3 L 3.5-5.0 g/dL Triglycerides Level 103 30-200 mg/dL Cholesterol Level 105 <200 mg/dL LDL Cholesterol 42 0-99 mg/dL HDL Cholesterol 57 35-85 mg/dL Thyroid Stimulating Hormone (TSH) 2.27 0.36-3.74 uIU/mL Urine Color YELLOW YELLOW Urine Appearance CLEAR CLEAR Urine pH 5.5 5.0-8.0 Urine Specific [place] 1.025 1.001-1.031 Urine Protein NEGATIVE NEGATIVE mg/dL Urine Glucose (UA) NEGATIVE NEGATIVE mg/dL Urine Ketones NEGATIVE NEGATIVE mg/dL Urine Occult Blood NEGATIVE NEGATIVE Urine Nitrate NEGATIVE NEGATIVE Urine Bilirubin NEGATIVE NEGATIVE mg/dL Urine Urobilinogen 0.2 0.2-1.0 mg/dL Urine Leukocyte Esterase 500 H NEGATIVE Corey/uL Urine RBC 2-5 H 0-1 /HPF Urine WBC 26-50 H 0-1 /HPF Urine Squamous Epithelial Cells RARE 0-2 /HPF Urine Bacteria RARE None Seen /HPF Prothrombin Time 10.8 9.6-11.6 SEC Prothromb Time International Ratio 1.02 0.85-1.15 Activated Partial Thromboplast Time 29.6 26.3-35.5 SEC Total Creatine Kinase 99 21-232 U/L Troponin I High Sensitivity 6.3 4-50 ng/L B-Type Natriuretic Peptide 70 0-100 pg/mL Current Medications Medications (Trade) Dose Ordered Sig/Joseph Route PRN Reason Start Time Stop Time Status Last Admin Dose Admin Atorvastatin Calcium (LIPItor 40MG) 40 mg HS PO 06/22/24 21:00 07/22/24 20:59 Ceftriaxone Sodium 1 gm/ Sodium Chloride 50 ml @ 100 mls/hr Q24H IV 06/21/24 20:30 06/22/24 02:09 DC Cyclopentolate HCl (Cyclogyl 1% Ophth Soln) 1 DROP HS OP 06/22/24 21:00 07/22/24 20:59 Famotidine (Pepcid 20mg Vial) 20 mg BID IV 06/21/24 21:00 07/21/24 20:59 06/22/24 09:56 20 MG Home Med (Home Medication) DAILY PO 06/22/24 09:00 07/22/24 08:59 Home Med (Home Medication) DAILY PO 06/22/24 09:00 07/22/24 08:59 Levofloxacin/ Dextrose 100 ml @ 100 mls/hr Q24H IV 06/21/24 22:00 07/01/24 21:59 06/21/24 23:23 100 MLS/HR Losartan Potassium (CozAAR 100MG TAB) 100 mg DAILY PO 06/22/24 09:00 07/22/24 08:59 06/22/24 09:57 100 MG Magnesium Oxide (Mag-Ox) 400 mg DAILY PO 06/22/24 09:00 07/22/24 08:59 06/22/24 09:57 400 MG Magnesium Sulfate 50 ml @ 0 mls/hr PROTOCOL PRN IV OTHER [SEE ORDER COMMENTS] 06/21/24 20:30 06/22/24 09:07 DC Magnesium Sulfate 50 ml @ 0 mls/hr PROTOCOL PRN IV magnesiumprotocol 06/22/24 09:30 07/22/24 09:29 Ondansetron HCl (zoFRAN 4MG INJ) 4 mg Q6H PRN IV NAUSEA/VOMITING 06/21/24 20:30 07/21/24 20:29 Potassium Chloride 100 ml @ 100 mls/hr AD PRN IV POTASSIUM PROTOCOL 06/21/24 20:30 07/21/24 20:29 Potassium Chloride (K-Dur/Klor-Con 20meq) 20 meq AD PRN PO POTASSIUM PROTOCOL 06/21/24 20:30 07/21/24 20:29 Potassium Chloride (KCl 10% Elixir 20meq/15ml) 20 meq AD PRN PO POTASSIUM PROTOCOL 06/21/24 20:30 07/21/24 20:29 Prednisolone Acetate (PREDforte 1% DROPS) 1 DROP TID OU 06/22/24 09:00 07/22/24 08:59 06/22/24 10:09 1 DROP Sodium Chloride 1,000 ml @ 75 mls/hr [id number] IV 06/21/24 20:30 07/21/24 20:29 06/22/24 09:57 75 MLS/HR DIAGNOSTICS / RADIOLOGY: [ ] ASSESSMENT: Dysphagia and dysarthria r/o CVA POA Hyperlipidemia POA Hypertension POA Acute urinary tract infection POA Anterior uveitis of left eye POA PLAN: Dysphagia and dysarthria Follow up with bedside swallow study and modified barium swallow Follow up with the acetylcholine Receptor blocking antibody test We will start on full liquid diet Consult gastroenterology depending on bedside swallow study Urinary tract infection We will start patient on Rocephin 1 g IV daily Hypertension, hyperlipidemia , anterior uveitis Resume and continue home meds. We will start on Famotidine 20 mg IV bid for GI prophylaxis We will replace electrolytes as needed per protocol We will add prn medication for fever,pain,cough and nausea We will reconcile home meds once medlist available NIHSS qhift and as needed We will request Case management service We will request bedside swallow eval We will request labs in am Further orders to follow depending on above results ATTESTATION BY PHYSICIAN I have seen and examined the patient. I reviewed the documentation, medical decision making, and treatment plan as noted by the resident provider above. I agree with the findings and plan of care. Luis A Chilel MD, KEERTI K MD Jun 22, 2024 11:27
--- NOTE | 2024-06-22 13:49 | NUR ---
PT BARIUM SWALLOW TEST AT THIS TIME THEN TO ROOM 328
--- NOTE | 2024-06-22 14:00 | NUR ---
MBSS COMPLETED. No aspirations; non-transient penetration after the swallow with thin liquids via cup sip cleared with innate throat clears. RECOMMEND regular solids (moist/add gravy), thin liquids and pills crushed with pureed as tolerated. May want to consider ENT consult as outpatient to further evaluate diminished vocal quality and xerostomia. Compensatory strategies: 1. sit upright during oral intake 2. small bites/sips 3. slow oral intake 4. avoid dry textures 5. extra dry swallows SUPERVISOR [employer] reviewed results and recommendations with patient and nurse Elsi. SUPERVISOR [employer] educated patient on risks and consequences of aspiration. Speech therapy not warranted at this time. All questions answered. Addendum: 06/22/[address] [facility] Amended: Links added.
--- NOTE | 2024-06-22 14:05 | NUR ---
SPEECH, LANGUAGE, AND COGNITIVE LINGUISTIC SKILLS EVALUATION COMPLETED: MILD DYSARTHRIA LIKELY ATTRIBUTED TO SEVERELY DIMINISHED AND STRANGLED VOCAL QUALITY. RECOMMEND ENT CONSULT TO FURTHER EVALUATE VOCAL QUALITY. EVALUATION: Pt AAOX4. Pt FOLLOWED COMMANDS, ANSWERED YES/NO AND "WH" QUESTIONS APPROPRIATELY, AND EXPRESSED WANTS AND NEEDS INDEPENDENTLY. Pt WAS COMMUNICATING AT CONVERSATIONAL LEVEL WITH NO ANOMIA OR APRAXIA OF SPEECH PRESENT. Pt COMPLETED COGNITIVE-LINGUISTIC EVALUATION WITH CORRECT AND TIMELY ANSWERS. Pt HOWEVER, PRESENTED WITH MILD DYSARTHRIA CHARACTERIZED BY REDUCED VOCAL INTENSITY AND IMPRECISE ARTICULATION AT CONVERSATIONAL LEVEL. PER PATIENT, THIS HAS BEEN HAPPENING FOR A FEW MONTHS ALREADY. SPEECH THERAPY NOT WARRANTED AT THIS TIME UNTIL PATIENT IS FIRST EVALUATED BY ENT. RECOMMEND ENT CONSULT TO FURTHER EVALUATE VOCAL QUALITY (VOCAL CORD FUNCTION). WARP SPLITTER COORDINATED WITH NURSE AMADO ABOUT RESULTS AND RECOMMENDATIONS. Addendum: 06/22/[address] [place] Amended: Links added.
[2024-06-22 14:35] VITALS: BP 135/82; PULSE 105; RESP 18; TEMP 97.9; O2SAT 98
--- NOTE | 2024-06-22 15:20 | HMCIMG ---
MODIFIED BARIUM SWALLOW W CINE REASON: dysphagia. COMPARISON: None TECHNIQUE: Modified barium swallow study was performed with referring speech therapist. FINDINGS: Please see procedure report by referring speech therapist. IMPRESSION: Modified barium swallow study.
--- NOTE | 2024-06-22 16:29 | DS ---
Discharge Summary Hospital Course Summary: This is a 74-year-old male past medical history of hypertension and hyperlipidemia who presents to the ED for complaints of slurred speech,dysphagia and voice hoarseness which started 2 months ago. Patient states she went to her PCP today for a scheduled labs and imaging studies since she has 2 cysts on her thyroid which has been on going for years now and she told her PCP about her complaints that she has been having difficulty swallowing ,voice hoarseness and feels like her tongue is thick and has also problem talking and all this happened since 2 months ago and it seems like it is becoming more worse so she was instructed to come to the ED for a further evaluation. Seen and examined patient in the Er,awake,alert and coherent .Patient moving all her extremities equally.Patient denies headache,dizziness,numbness or tingling sensation on her extremities.Patient denies abdominal pain, chest pain,palpitation and shortness of breath. Recent vital signs temperature 98.1, heart rate 90, blood pressure 118/78 saturation 97% on room air. Labs: CBC is normal. CO2 34 BUN 23 BNP 70 troponin six the rest of the chemistry is normal. Urinalysis positive with esterase. CT neck soft tissue result revealed normal. CT head without contrast result revealed chronic white matter ischemic changes mild brain atrophy and arteriosclerotic disease as described without acute component. ECG result revealed sinus rhythm heart rate 69. Chest x-ray is no rmal. Reportedly as per ER, neurologist was consulted. We will admit patient for further medical management. 06/22/2024 - patient is seen at bedside, pending bedside swallow and modified barium swallow study. Patient is currently has mild dysphagia and informed about choking on water, asymptomatic otherwise. Labs were unremarkable . We will follow up with the patient. Bedside swallow study revealed 1.no aspirations, mild penetration cleared with throat clearing 2.Mild pharyngeal residue cleared with the extra dry swallows 3.Recommended ENT as outpatient Patient is stable for discharge and will be discharged with ENT follow up Analysis Mgr(s): None Procedure(s): PATIENT: AMBERLY AYALA MR#: [id number] : 1950 SEX: F AGE: 74 LOCATION: [facility] ORDER 1624 STATUS: REG ER REPORT#: [id number] SERVICE 1624 REASON: dysphagia ORDERING PHYSICIAN: ELVIN ALEJANDRE MD PROCEDURE: NKSOFTI W - CT NECK SOFT TISS W/CONTRAST CT NECK WITH CONTRAST INDICATION: Dysphagia TECHNIQUE: 3D helical CT acquisition images were obtained from the level of the skull base to the thoracic inlet with 75 mL of Omnipaque 350 IV contrast and coronal and sagittal reformats. CT was performed with one or more of the following dose reduction techniques: Automated exposure control, adjustment of the mA and/or kV according to patient size, or use of iterative reconstruction technique. COMPARISON: None FINDINGS: The visualized portions of the brain, skull base, orbits, and paranasal sinuses appear normal. The visualized nasopharynx and nasal cavity appear normal. The oral cavity, oropharynx, and hypopharynx appear normal. The cervical esophagus and visualized portion of the thoracic esophagus appear normal. The larynx and visualized trachea appear normal. The extramucosal spaces of the neck appear normal. The parotid and submandibular glands appear normal. The thyroid gland appears normal. No cervical lymphadenopathy noted. The visualized osseous structures, vasculature, and soft tissues appear normal. The upper mediastinum and lung apices appear normal. IMPRESSION: Normal CT imaging of the neck. DICTATED BY: RONNY ANN MD DATE: 06/21/24 1756 ELECTRONICALLY SIGNED BY: RONNY ANN MD DATE: 06/21/24 1800 PATIENT: AMBERLY AYALA MR#: [id number] : 1950 SEX: F AGE: 74 LOCATION: [facility] ORDER 1450 STATUS: [facility] REPORT#: [id number] SERVICE 1448 REASON: slurred speech ORDERING PHYSICIAN: ELVIN ALEJANDRE MD PROCEDURE: HEAD WO - CT HEAD/BRAIN W/O CONTRAST CT HEAD WITHOUT CONTRAST INDICATION: Slurred speech TECHNIQUE: Noncontrast axial helical CT images from the vertex through the skull base using 5 mm slice thickness without contrast material. Coronal and sagittal reconstructions were also included. Dose reduction techniques was used using integrated, automated and adaptive dose reduction exposure control. CT was performed with one or more of the following dose reduction techniques: Automated exposure control, adjustment of the mA and/or kV according to patient size, or use of iterative reconstruction technique. COMPARISON: None FINDINGS: Scattered and coalescent subcortical and periventricular white matter low attenuating areas likely represent residual of chronic small vessel arteriopathy and/or remote vascular insult. Generalized mild cerebral cortical atrophy is present.. No evidence for abnormal extra-axial fluid collections or masses. The ventricles and sulci are normal in size and configuration. No evidence for intracranial parenchymal, epidural, or subdural hemorrhage, mass effect or midline shift. The real-white matter differentiation is well preserved. No secondary evidence to suggest acute ischemia. Mild calcific plaque is present along the downs of the cavernous segments of both internal carotid arteries. The brainstem and cerebellum appear normal. The visualized orbits appear unremarkable. The visible paranasal sinuses and mastoid air cells are clear. The calvarium appears normal. IMPRESSION: Chronic white matter ischemic changes, mild brain atrophy, and arteriosclerotic disease as described, without acute component. DICTATED BY: RONNY ANN MD DATE: 06/21/241533 ELECTRONICALLY SIGNED BY: RONNY ANN MD DATE: 06/21/241537 PATIENT: AMBERLY AYALA MR#: [id number] : 1950 SEX: F AGE: 74 LOCATION: [facility] ORDER 1450 STATUS: [facility] REPORT#: [id number] SERVICE 1448 REASON: stroke ORDERING PHYSICIAN: ELVIN ALEJANDRE MD PROCEDURE: CXR1VW - CHEST 1VW PORTABLE CHEST RADIOGRAPH INDICATION: stroke COMPARISON: None FINDINGS: Heart size is normal. The pulmonary vascularity and renaldo appear normal. No abnormal pulmonary parenchymal opacity or consolidation identified. No significant pleural effusion noted. No pneumothorax detected. IMPRESSION: No radiographic evidence for any acute cardiopulmonary process. DICTATED BY: RONNY ANN MD DATE: 06/21/241523 ELECTRONICALLY SIGNED BY: RONNY ANN MD DATE: 06/21/241526 Assessment/Plan: ASSESSMENT: Dysphagia POA Hyperlipidemia POA Hypertension POA Acute urinary tract infection POA Anterior uveitis of left eye POA Ruled out CVA Discharge Instructions: Eat only soft, moist, or pureed foods. Examples include mashed potatoes, yogurt, pudding, soaps and smoothies Avoid dry, hard, or crumbly foods such as crackers, chips, dry bread or nuts. Take small bites and chew food thoroughly before swallowing. Sip liquids with meals to help with swallowing, but avoid thin liquids if they cause choking(use thickened liquids if recommended). Sit upright while eating and remained in that position for at least 30 minutes after meals. Eat slowly intake small bites. Avoid talking while eating to prevent choking. Monitor for signs of choking, position coughing, or difficulty breathing while eating or drinking. If you experience worsening swallowing difficulty, weight loss, or aspiration symptoms example coughing while eating please seek medical attention He has been referred to ENT specialist for further evaluation. Please schedule an appointment as soon as possible Additional tests or therapy such as swallowing study as speech therapy may be repeated Follow up with the primary in 1 week Make an appointment with the ENT in 3-7 days Home Medications: Reported Medications Cyclopentolate HCl (Cyclopentolate HCl) 1 % Drops, 1 DROP OP HS, #2 ML 0 Refills 06/22/24 Melatonin (Melatonin) 10 Mg Capsule, 1 CAP PO HS for sleep for 30 Days, #30 CAP 0 Refills 06/22/24 Cetirizine HCl (Cetirizine HCl) 10 Mg Tab.chew, 1 TAB PO DAILY for allergy symptoms for 30 Days, #30 TAB 0 Refills 06/22/24 Magnesium Oxide (Magnesium) 400 Mg Magnesium Capsule, 1 CAP PO DAILY for 30 Days, #30 CAP 0 Refills 06/22/24 Ubidecarenone (Co Q-10) 300 Mg Capsule, 400 MG PO DAILY, CAP 06/22/24 Cranberry Fruit (Cranberry) 450 Mg Tablet, 425 MG PO DAILY, TAB 06/22/24 Calcium Carbonate (Calcium) 500 Mg Calcium (1250 Mg) Tab.chew, 1200 TAB PO DAILY for 30 Days, #60 TAB 0 Refills 06/22/24 Prednisolone Acetate (Prednisolone Acetate) 1 % Drops.susp, 1 DROP OU TID 06/22/24 Rosuvastatin Calcium (Rosuvastatin Calcium) 20 Mg Tablet, 1 TAB PO HS 06/22/24 Losartan Potassium (Losartan Potassium) 100 Mg Tablet, 1 TAB PO DAILY 06/22/24 Fenofibrate (Fenofibrate) 160 Mg Tablet, 1 TAB PO DAILY 06/22/24 Gabapentin (Neurontin) 300 Mg Capsule, 300 MG PO BID 06/22/24 Continued Medications: Calcium Carbonate (Calcium) 500 Mg Calcium (1250 Mg) Tab.chew 1200 TAB PO DAILY for 30 Days, #60 TAB 0 Refills Cetirizine HCl (Cetirizine HCl) 10 Mg Tab.chew 1 TAB PO DAILY for allergy symptoms for 30 Days, #30 TAB 0 Refills Cranberry Fruit (Cranberry) 450 Mg Tablet 425 MG PO DAILY, TAB Cyclopentolate HCl (Cyclopentolate HCl) 1 % Drops 1 DROP OP HS, #2 ML 0 Refills Fenofibrate (Fenofibrate) 160 Mg Tablet 1 TAB PO DAILY Gabapentin (Neurontin) 300 Mg Capsule 300 MG PO BID Losartan Potassium (Losartan Potassium) 100 Mg Tablet 1 TAB PO DAILY Magnesium Oxide (Magnesium) 400 Mg Magnesium Capsule 1 CAP PO DAILY for 30 Days, #30 CAP 0 Refills Melatonin (Melatonin) 10 Mg Capsule 1 CAP PO HS for sleep for 30 Days, #30 CAP 0 Refills Prednisolone Acetate (Prednisolone Acetate) 1 % Drops.susp 1 DROP OU TID Rosuvastatin Calcium (Rosuvastatin Calcium) 20 Mg Tablet 1 TAB PO HS Ubidecarenone (Co Q-10) 300 Mg Capsule 400 MG PO DAILY, CAP Time spent arranging discharge: 1-30 minutes ATTESTATION BY PHYSICIAN I have seen and examined the patient. I reviewed the documentation, medical decision making, and treatment plan as noted by the resident provider above. I agree with the findings and plan of care. Luis A Chilel MD, KEERTI K MD Jun 22, 2024 16:29
[2024-06-22] MEDS ORDERED: atorVAStatin 40 MG TABLET PO SCH (21:00)
[2024-06-22] MEDS ORDERED: CYCLOPENTOLATE HCL 1% OP SCH (21:00)
== END 2024-06-22 18:00 | disposition home or self-care (01) ==
LOC: EDH 14:38 → INTOOBSV 18:24 → EDHIP 18:24 → 3DH 06-22 13:45
PROVIDERS: ADMIT Internal Medicine; ATTEND Internal Medicine
DX: R13.10 Dysphagia, unspecified (principal); I10 Essential (primary) hypertension; E78.5 Hyperlipidemia, unspecified; N39.0 Urinary tract infection, site not specified; H20.9 Unspecified iridocyclitis; R47.81 Slurred speech; G31.9 Degenerative disease of nervous system, unspecified; I63.9 Cerebral infarction, unspecified; G45.9 Transient cerebral ischemic attack, unspecified; R47.1 Dysarthria and anarthria; Z88.5 Allergy status to narcotic agent; Z88.0 Allergy status to penicillin; Z88.8 Allergy status to other drugs, medicaments and biological substances; Z79.899 Other long term (current) drug therapy
CPT/HCPCS: 96365; 96375; 96361 ×2; 99285; 82550; 83721; 84484; 80048; 83880; 85025 ×2; 85610; 85730; 87086; 81001; 36415 ×2; 71045; 70450; 70491; 93005; 96376; 83036; 84443; 83735; 80061; 80053; 84238; 74230; 92522; 92611; J3490 ×2; J1956; J7030; Q9967; G0378 ×5

== ENCOUNTER → 2024-10-11 | Outpatient (CLI) | payer OTHER ==
[~2024-10-11] MED LIST: CALC-322 PO; CETI10TA87 PO; CRAN450T10 PO; CYCL2DRO OP; FENO160T16 PO; GABA300C PO; LOSA100T59 PO; MAGN400C PO; MELA10CA11 PO; PRED5DRO17 OU; ROSU20TA98 PO; UBID300C3 PO
[2024-10-11 12:24] LABS: CREATININE 0.5 mg/dL (0.5-1.0); GLOMERULAR FILTR. RATE CALC 99.0 mL/min (>90); GLUCOSE,RANDOM 120.0 mg/dL (70-105); SODIUM SERUM 142.0 mmol/L (136-145); UREA NITROGEN, BLOOD 17.0 mg/dL (7-18)
--- NOTE | 2024-10-11 13:30 | NUR ---
MBSS COMPLETED. Recommend regular solids (moist, no mixed textures), thin liquids, and pills crushed with pureed as tolerated. No aspiration; however, patient presented with deep non-transient penetrations before the swallow with mixed textures followed by throat clears. Compensatory strategies: 1. sit upright during oral intake 2. small bites/sips 3. slow oral intake 4. extra dry swallow DIAGNOSTIC FINDINGS: Pt presented with mild pharyngeal dysphagia characterized by decreased tongue base retraction; delayed pharyngeal response trigger and decreased hyo-laryngeal elevation/excursion evidenced by occasional premature spillage to valleculae with spillover to pyriform sinuses; mild residue on base of tongue, pyriform sinuses and posterior pharyngeal wall and moderate residue observed in valleculae cleared with extra dry swallows; resulting in deep non-transient penetrations before the swallow on extra swallow with mixed textures followed by throat clear response. NOTE: Patient noted with diminished vocal quality which was also present during previous admission on 06/22/2024. Pt reports not yet seen ENT to address voice issue. No improvements noted with dysphagia from previous MBSS exam. This may be patient's new baseline. Speech therapy not warranted at this time. ENERGY SALES CONSULTANT reviewed results and recommendations with patient. ENERGY SALES CONSULTANT educated patient on risks and consequences of aspiration. All questions answered. Addendum: 11/01/[address] [facility] Amended: Links added.
--- NOTE | 2024-10-31 09:28 | HMCIMG ---
MODIFIED BARIUM SWALLOW W CINE REASON: Dysphagia, oropharyngeal phase; Feeding difficulties, unspecified FINDINGS: Fluoroscopic assistance was provided to the speech pathologist while performing examination. For findings and dietary recommendations, refer to speech pathologist's report. FLUORO TIME: Fluoroscopy time 3.9 minutes IMPRESSION: Modified barium swallow as described.
== END | disposition home or self-care (01) ==
LOC: RAH 11:44
PROVIDERS: ATTEND Internal Medicine Gastroenterology
DX: R13.12 Dysphagia, oropharyngeal phase (principal); R63.30 Feeding difficulties, unspecified; R47.1 Dysarthria and anarthria
CPT/HCPCS: 36415; 74230; 80048; 92611

== ENCOUNTER → 2024-10-16 | Outpatient (CLI) | payer OTHER ==
--- NOTE | 2024-10-11 13:30 | NUR ---
MBSS COMPLETED. Recommend regular solids (moist, no mixed textures), thin liquids, and pills crushed with pureed as tolerated. No aspiration; however, patient presented with deep non-transient penetrations before the swallow with mixed textures followed by throat clears. Compensatory strategies: 1. sit upright during oral intake 2. small bites/sips 3. slow oral intake 4. extra dry swallow DIAGNOSTIC FINDINGS: Pt presented with mild pharyngeal dysphagia characterized by decreased tongue base retraction; delayed pharyngeal response trigger and decreased hyo-laryngeal elevation/excursion evidenced by occasional premature spillage to valleculae with spillover to pyriform sinuses; mild residue on base of tongue, pyriform sinuses and posterior pharyngeal wall and moderate residue observed in valleculae cleared with extra dry swallows; resulting in deep non-transient penetrations before the swallow on extra swallow with mixed textures followed by throat clear response. NOTE: Patient noted with diminished vocal quality which was also present during previous admission on 06/22/2024. Pt reports not yet seen ENT to address voice issue. No improvements noted with dysphagia from previous MBSS exam. This may be patient's new baseline. Speech therapy not warranted at this time. HEAD OF DATA reviewed results and recommendations with patient. HEAD OF DATA educated patient on risks and consequences of aspiration. All questions answered. Addendum: 10/11/[address] [facility] Amended: Links added. Addendum: 11/01/[address] [facility] CORRECTION: THIS DOCUMENTED WAS ENTERED UNDER INCORRECT V #. REFER TO [id number] FOR FULL EVALUATION.
[~2024-10-16] MED LIST changes: +GADOTERATE MEGLUMINE 10 MMOL/20 ML VIAL IV ONE
--- NOTE | 2024-10-16 16:18 | HMCIMG ---
EXAM: MR Brain With Intravenous Contrast. CLINICAL HISTORY: 74-year-old female with dysphagia, oropharyngeal phase. TECHNIQUE: Magnetic resonance images of the brain with intravenous contrast in multiple planes. CONTRAST: Clariscan 11 mL COMPARISON: 06/21/2024 FINDINGS: BRAIN: No restricted diffusion to indicate acute infarction. No intracranial mass or hemorrhage. No midline shift or extra-axial fluid collection. No cerebellar tonsillar ectopia. Following contrast administration, no enhancing mass lesion. The central arterial and venous flow voids are patent. Chronic ischemic changes in the deep white matter and periventricular zones, similar to prior CT Brain 06/21/2024. VENTRICLES: No hydrocephalus. ORBITS: The orbits are normal. SINUSES AND MASTOIDS: The sinuses and mastoid air cells are clear. BONES: No acute fracture or focal osseous lesion. IMPRESSION: 1. No acute findings. 2. Chronic ischemic changes in the deep white matter and periventricular zones, similar to prior CT Brain 06/21/2024. /[place]
== END | disposition home or self-care (01) ==
LOC: RAH 13:44
PROVIDERS: ATTEND Internal Medicine Gastroenterology
DX: I67.82 Cerebral ischemia (principal); R13.12 Dysphagia, oropharyngeal phase; R47.1 Dysarthria and anarthria
CPT/HCPCS: 70553; A9575; 92611